=== PATIENT | male | born 1945 | race Caucasian/White ===

== ENCOUNTER → 2023-07-05 08:17 | Outpatient (REF) | payer MEDICARE, OTHER, SELFPAY | LOC: RCS 08:17 | PROVIDERS: ATTENDING PHYSICIAN Internal Medicine Cardiovascular Disease; FAMILY PHYSICIAN Physician Assistant Medical | DX: I25.5 Ischemic cardiomyopathy (principal); I34.0 Nonrheumatic mitral (valve) insufficiency; I49.3 Ventricular premature depolarization | CPT/HCPCS: 93306 ==